=== PATIENT | female | born 1990 | race Caucasian/White ===

== ENCOUNTER 2017-02-18 21:10 | Emergency (ER) | payer BC ==
[~2017-02-18] VITALS: Ht 162.6 cm; Wt 49.9 kg
[2017-02-18 21:25] VITALS: BP_SYST 138
[2017-02-18 22:35] VITALS: BP_SYST 138
== END 2017-02-18 22:35 | disposition home or self-care (01) ==
LOC: SED 21:10
DX: J02.8 Acute pharyngitis due to other specified organisms (principal); B97.89 Other viral agents as the cause of diseases classified elsewhere; R03.0 Elevated blood-pressure reading, without diagnosis of hypertension; F17.200 Nicotine dependence, unspecified, uncomplicated
CPT/HCPCS: 36415; 86403; 87081; 99284

== ENCOUNTER 2018-01-03 15:08 | Emergency (ER) | payer BC, MEDICAID ==
[~2018-01-03] VITALS: Ht 160 cm; Wt 49.9 kg
[2018-01-03 15:08] VITALS: BP_SYST 148
--- NOTE | 2018-01-03 15:34 | NUR ---
Patient to ER bed 04 to gown for evaluation. Side rails up.
--- NOTE | 2018-01-03 15:40 | NUR ---
Dr Chavez at bedside exmaining patient
[2018-01-03] MEDS ORDERED: NACL 0.9% 1,000 ML IV ONE ×3 (15:45→17:30)
[2018-01-03] MEDS ORDERED: ONDANSETRON HCL 4 MG/2 ML VIAL IVP ONE (15:45)
--- NOTE | 2018-01-03 16:12 | NUR ---
Pt brought by family member, A&Ox4, pt is 4 to 6 weeks , pt presents to ER with N/V and abdominal pain , denies bleeding, skin pink and warm, cap refill <3, VS WNL, respirations even and unlabored, cap refill <3.
[2018-01-03 16:13] LABS: BASOPHILS # (AUTO) 0.1 K/uL (0.0-0.2); BASOPHILS % (AUTO) 1.2 % (0.0-2.0); HEMATOCRIT 45.3 % (36-48); HEMOGLOBIN 15.1 g/dL (12.0-16.0); LYMPHOCYTES # (AUTO) 1.1 K/uL (1.0-5.5); LYMPHOCYTES % (AUTO) 9.5 % (20.5-51.5); MEAN CORPUSCULAR HEMOGLOBIN 32 pg (27-31); MEAN CORPUSCULAR HGB CONC 33 % (32-36); MEAN CORPUSCULAR VOLUME 96 fL (79.0-98.0); MONOCYTES # (AUTO) 0.5 K/uL (0.0-1.0); MONOCYTES % (AUTO) 4.4 % (1.7-9.3); NEUTROPHILS # (AUTO) 9.6 K/uL (1.8-7.7); NEUTROPHILS % (AUTO) 84.9 % (40.0-70.0); PLATELET COUNT (AUTO) 351 K/uL (130-430); RED BLOOD CELL COUNT(AUTO) 4.72 MIL/uL (4.2-6.2); WHITE BLOOD COUNT (AUTO) 11.3 K/uL (4.8-10.8)
[2018-01-03 16:17] LABS: CALCIUM 10.2 mg/dL (8.4-11.0); CREATININE 0.92 mg/dL (0.55-1.30); POTASSIUM 3.7 mmol/L (3.5-5.1)
--- NOTE | 2018-01-03 16:40 | NUR ---
Patient to Ultrasound via wheelchair in stable condition.
[2018-01-03 16:53] LABS: BARBITURATE, URINE NEGATIVE (NEG <=200); BENZODIAZEPINE, URINE NEGATIVE (NEG <=150); CANNABINOID, URINE POSITIVE (NEG <=50); COCAINE, URINE NEGATIVE (NEG <=150); METHAMPHETAMINES SCREEN,URINE NEGATIVE (NEG <=500); OPIATE, URINE NEGATIVE (NEG <=100); PHENCYCLIDINE SCREEN,URINE NEGATIVE (NEG <=25); UR TRICYCLIC ANTIDEPRESSANTS NEGATIVE (NEG <=300); URINE AMPHETAMINE NEGATIVE (NEG <=500); URINE METHADONE NEGATIVE (NEG <=200); URINE OXYCODONE SCREEN NEGATIVE (NEG <=100); URINE PROPOXYPHENE SCREEN NEGATIVE (NEG <=300)
--- NOTE | 2018-01-03 17:10 | NUR ---
Patient returned from ultrasound in stable condition via wheelchair. Awaiting results and dispo.
--- NOTE | 2018-01-03 18:10 | NUR ---
Patient resting quietly in no acute distress, IV fluids infusing without difficulty. Awaiting results and dispo.
--- NOTE | 2018-01-03 19:00 | NUR ---
Assessment remains unchanged, awaiting dispo.
[2018-01-03 19:45] VITALS: BP_SYST 130
--- NOTE | 2018-01-03 19:45 | NUR ---
Patient given written and verbal discharge instructions and verbalizes understanding. ER MD discussed with patient the results and treatment provided. Patient in stable condition. ID arm band removed. IV catheter removed intact and dressing applied, no active bleeding. Rx of Zofran given. Patient educated on pain management and to follow up with PMD. Pain Scale 0. Opportunity for questions provided and answered. Medication side effect fact sheet provided. Patient left ER in no acute distress ambulating without difficulty with slow, steady gait with family at her side. No adverse reaction noted to medication.
== END 2018-01-03 19:45 | disposition home or self-care (01) ==
LOC: SED 15:08
DX: O21.0 Mild hyperemesis gravidarum (principal); Z3A.01 Less than 8 weeks gestation of pregnancy
CPT/HCPCS: 36415; 76801; 76817; 80053; 80307; 81025; 84703; 85025; 96361; 96374; 99285; J2405; J7030